=== PATIENT | male | born 1995 | race Two or more races ===

== ENCOUNTER 2024-10-22 22:51 | Emergency (ER) | payer MEDICAID, SELFPAY ==
[2024-10-22 22:52] VITALS: BP 136/78; PULSE 60; RESP 17; TEMP 36.7; O2SAT 98; BMI 22.8
--- NOTE | 2024-10-22 23:16 | PD.EDALLER ---
ED Allergic Reaction RME/HPI General Chief complaint: Allergic Reaction Stated complaint: ALLERGIC REACTION HIVES Time Seen by Provider: 10/22/24 23:11 Arrival date/time: 10/22/24 22:51 This is a case of 29-year-old male with no medical history came in in the emergency room due to generalized urticarial rashes today 1 hour prior to arrival in the emergency room patient denies any shortness of breath patient is speaking with full sentences no facial or throat swelling patient states that it happened to him last month and was treated for hives patient took only 25 mg of Benadryl prior to arrival in the emergency room with no relief Limitations: no limitations Related Data Previous Rx's ?Medication ?Instructions ?Recorded diphenhydramine HCl 25 mg capsule 25 mg PO Q6H PRN allergic reaction 10/22/24 (Benadryl) #20 caps famotidine 20 mg tablet (Pepcid) 20 mg PO BID 10 days #20 tabs 10/22/24 prednisone 20 mg tablet See Taper PO QDAY 5 days #5 tabs 10/22/24 Allergies Allergy/AdvReac Type Severity Reaction Status Date / Time amoxicillin Allergy Verified 10/22/24 22:58 Review of Systems Review of Systems Systems Reviewed: All systems reviewed, normal except as documented Constitutional Constitutional: Reports system reviewed and no additional complaints, except as documented and Reports as per HPI Cardiovascular Cardiovascular: Reports system reviewed and no additional complaints, except as documented and Reports as per HPI Respiratory Respiratory: Reports system reviewed and no additional complaints, except as documented and Reports as per HPI Gastrointestinal Gastrointestinal: Reports system reviewed and no additional complaints, except as documented and Reports as per HPI Musculoskeletal Musculoskeletal: Reports system reviewed and no additional complaints, except as documented and Reports as per HPI Integumentary/Breasts Skin/Breast: Reports other (rash) Neurologic Neurologic: Reports system reviewed and no additional complaints, except as documented and Reports as per HPI Past Medical History Social History SMOKING STATUS: Never smoker ED Exam General Limitations: Present no limitations General appearance: Present alert, in no apparent distress and other (Patient is awake alert oriented not in distress nontoxic looking well-hydrated well-nourished) Head Head exam: Present atraumatic, normocephalic and normal inspection Eye Eye exam: Present normal appearance, PERRL and EOMI ENT ENT exam: Present normal exam, normal oropharynx, mucous membranes moist and other (No facial or throat swelling no drooling of saliva patient can speak full sentences) Neck Neck exam: Present normal inspection, full ROM and trachea midline; Absent tenderness Chest Chest inspection: Present normal inspection and symmetric chest wall rise; Absent tenderness Respiratory Respiratory exam: Present normal lung sounds bilaterally; Absent respiratory distress, wheezes, stridor, accessory muscle use or prolonged expiratory phase Cardiovascular Cardiovascular exam: Present regular rate, normal rhythm and normal heart sounds; Absent bradycardia, tachycardia, irregular rhythm, systolic murmur or diastolic murmur Abdominal Exam Abdominal exam: Present soft and normal bowel sounds; Absent distention, tenderness, guarding, rebound, rigidity, diminished bowel sounds, hyperactive bowel sounds, hypoactive bowel sounds or organomegaly Extremities Exam Extremities exam: Present normal inspection and full ROM Back Exam Back exam: Present normal inspection and full ROM Neurological Exam Neurological exam: Present alert, oriented X3, CN II-XII intact and normal gait; Absent motor sensory deficit or reflexes normal Psychiatric Psychiatric exam: Present normal affect and normal mood Skin Skin exam: Present warm, dry, intact, normal color and other (Noted to have generalized urticarial rashes on the chest abdomen back both upper and both lower extremities nonblanching no cellulitis no abscess) Course Quality Measures none Orders Category Date Time Status DiphenhydrAMINE INJ [Benadryl Inj] Med 10/22/24 23:13 Discontinued 25 mg IM X1 ONE Famotidine [Pepcid] Med 10/22/24 23:13 Discontinued 40 mg PO X1 ONE MethylPREDNISolone.* [SoluMEDROL Inj] Med 10/22/24 23:13 Discontinued 125 mg IM X1 ONE Vital Signs Vital signs: Vital Signs Temperature 98.0 F 10/22/24 22:52 Pulse Rate 60 10/22/24 22:52 Respiratory Rate 17 10/22/24 22:52 Blood Pressure 136/78 H 10/22/24 22:52 Pulse Oximetry (%) 98 10/22/24 22:52 Oxygen Delivery Method Room Air 10/22/24 22:52 patient is afebrile not tachycardic not tachypneic BP stable not hypoxic oxygen saturation is 98% in room air Allergic Reaction MDM Narrative MDM Narrative:: This is a case of 29-year-old male with no medical history came in in the emergency room due to generalized urticarial rashes today 1 hour prior to arrival in the emergency room patient denies any shortness of breath patient is speaking with full sentences no facial or throat swelling patient states that it happened to him last month and was treated for hives patient took only 25 mg of Benadryl prior to arrival in the emergency room with no relief patient is awake alert oriented not in distress nontoxic looking no facial or throat swelling lungs sound is clear no crackles no rales no retraction no wheezing noted a urticarial rashes on the back abdomen both upper and both lower extremities suggestive of allergic urticaria patient was given Solu-Medrol Benadryl and Pepcid which patient condition markedly improved no signs and symptoms of angioedema nor anaphylaxis patient was discharged with prednisone Benadryl and Pepcid patient was advised to follow-up with PCP to be referred to credit balance specialist for allergy testing for any recurrence persistent worsening symptoms return to the emergency room immediately or call 911 Patient was discharged with comfortable condition walking with stable gait. Patient verbalized no further complains explained diagnosis and answered patient question. Patient is comfortable with the proposed management plan including the need to follow up with his/her primary care physician and any specialist if applicable Discussed patient for any urgent condition or worsening sx, He/She needed to go to emergency room immediately or call 911. Patient acknowledge the responsibility to follow up as instructed and to monitor her/his symptoms. For any persistence of the symptoms for more than 3-5 days return precaution advised. Discussed the result of the test and was given printed discharge instruction Patient data External records reviewed:: [facility] previous records Clinical information provided by:: patient Social determinants that could affect healthcare access:: none Patient has the following chronic illnesses:: None How is presenting disease/condition affected by chronic disease/condition?: no chronic disease Evaluation data The following diagnostics were reviewed and interpreted by me:: other (specify) Lab and/or radiology exams considered but not ordered:: None Interpretation Summary: None Medications / Prescriptions Medications or Prescriptions considered but not ordered:: Reviewed Medication administrations:: Medication Administration History Discontinued Medications Diphenhydramine HCl (Diphenhydramine Inj 50 Mg/Ml Vial) 25 mg IM X1 ONE Stop: 10/22/24 23:14 Famotidine (Famotidine 20 Mg Tablet) 40 mg PO X1 ONE Stop: 10/22/24 23:14 Methylprednisolone Sodium Succinate (Methylprednisolone Sod Succ 62.5 Mg/Ml 2ml Vial) 125 mg IM X1 ONE Stop: 10/22/24 23:14 Reviewed Consultations Consultation(s) initiated? (list below): No Diagnosis Differential Diagnosis allergic reaction: allergic reaction, contact dermatitis and urticaria Most likely diagnosis given after review of the tests above:: Allergic urticaria Admission Indicated Admission indicated?: not indicated Explain why admission is indicated or not indicated:: Not indicated Admission Request Was there a request for admission?: No Admission Attestation Admission request attestation: Not indicated Disposition Plan Disposition Plan: Discharge Discharge Attestation Discharge Attestation: The patient and all family members were given an opportunity to ask questions and understood the discharge instructions. Discharge instructions specifically effects, indications for sooner follow up or return to the emergency department, and the expected course of current diagnosis. Patient condition: Stable Discharge Plan Plan Patient Disposition: HOME (Self Care) Patient condition on transfer: Stable Prescriptions/Referrals Prescriptions/Med Rec: New prednisone 20 mg tablet See Taper PO QDAY 5 Days Qty: 5 0RF Taper: Prednisone Taper 20 mg DAILY for 2 Days and 0 Hour 10 mg DAILY for 2 Days and 0 Hour 5 mg DAILY for 7 Days and 0 Hour diphenhydramine HCl [Benadryl] 25 mg capsule 25 mg PO Q6H PRN (Reason: allergic reaction) Qty: 20 0RF famotidine [Pepcid] 20 mg tablet 20 mg PO BID 10 Days Qty: 20 0RF Problem List Clinical Impression: Allergic reaction, Urticaria Patient/Caregiver Discharge Instructions Education Materials: ED Hives (Adult) Additional Instructions: Follow-up with your primary care physician in 2 days for reevaluation and to be referred to credit balance specialist for allergy testing recurrence persistent worsening symptoms or any emergent concern call 911 or go to the nearest emergency room take your medication as directed keep the area clean and dry hypoallergenic soap and laundry soap is advised discharge Print Language: Yoruba Stand Alone Forms: Franc[facility]a Award Info., Patient Portal Info Letter PA/ONLINE RETAILER Supervising Physician PA/ONLINE RETAILER Supervising Physician: Tosha slade
[2024-10-22] MEDS: FAMOTIDINE 20 MG TABLET 40 MG PO (23:38)
[2024-10-22] MEDS: MethylPREDNISolone SOD SUCC 62.5 MG/ML 2ML VIAL 125 MG IM (23:38)
== END 2024-10-23 00:50 | disposition home or self-care (01) ==
LOC: SERX 10-23 00:09
PROVIDERS: Emergency Provider Emergency Medicine; PCP Family Medicine
DX: L50.0 Allergic urticaria (principal)
CPT/HCPCS: 96372; 99283; J1200; J2919; A9270